=== PATIENT | male | born 1995 | race Caucasian/White ===

== ENCOUNTER 2021-11-24 22:22 | Emergency (ER) | payer MEDICAID ==
[~2021-11-24] VITALS: Ht 170.2 cm; Wt 75.0 kg
[2021-11-24 23:05] VITALS: BP 127/88
[2021-11-25] MEDS ORDERED: DOXYCYCLINE 100MG CAPSULE PO STA (00:37)
[2021-11-25] MEDS ORDERED: DOXY100C76 PO (00:39)
[2021-11-25] MEDS ORDERED: ondansetron 4mg rapidly disintigrating tab PO ONE (00:40)
[2021-11-25] MEDS ORDERED: DOXY100C77 PO (01:13)
--- NOTE | 2021-11-28 18:44 | NUR ---
Patient call to get results of STD testing. Patient was informed regarding results. I spoke with KODI gómez regarding patient only have received doxycycline. Cony MARIEE stated that he needs to be placed on keflex 500 mg PO BID x 10 days total 20 tablets 0 refills. Notified patient regarding this and he asked if I could call in RX to [facility] on [address]. Rx called in and voice mail message left due to pharmacy being closed.
== END 2021-11-25 01:27 | disposition home or self-care (01) ==
LOC: EDBD 22:23 → ER 22:23
DX: N48.89 Other specified disorders of penis (principal); R36.9 Urethral discharge, unspecified; Z11.3 Encounter for screening for infections with a predominantly sexual mode of transmission
CPT/HCPCS: 36415; 87491; 99283